=== PATIENT | female | born 1995 | race Caucasian/White ===

== ENCOUNTER → 2019-09-30 | Outpatient (CLI) | payer MEDICAID ==
--- NOTE | 2019-09-30 18:13 | Diagnostic Imaging Report ---
INDICATION: assessment TECHNIQUE: Multiple real-time grayscale images were obtained over the gravid uterus. COMPARISON: None FINDINGS: There is a grossman intrauterine gestation in cephalic presentation. There is normal amount of amniotic fluid. Placenta is posterior without evidence of placenta previa. Cervical length is 3.8 cm. No anomaly is identified. biometry indicates gestational age of 20 weeks and 6 days. No maternal adnexal region abnormality is identified. cardiac activity is present with a rate of 153 bpm. IMPRESSION: Unremarkable obstetrical ultrasound with an estimated gestational age of 20 weeks and 6 days. Sonographic EDC is 02/09/2020 Biometrical measurements are as follows: Biparietal 4.99 cm, age 21 weeks 1 days. Head circumference 18.73 cm, age 21 weeks 1 days. Abdominal circumference 15.74 cm, age 21 weeks 1 days. Femur length 3.56 cm, age 21 weeks 1 days. Sonographic estimate age: 21 weeks 1 days. Sonographic estimated date of delivery: 02/11/2020. Estimated Weight: 396 gm (+/- 2 gm). LMP percentile: 56%. heart rate: 153 beats per minute. number: 1 of 1. Dictated by: Dictated on workstation # [id number]
== END ==
LOC: RAD 15:26
PROVIDERS: ATTEND Obstetrics & Gynecology
DX: Z34.92 Encounter for supervision of normal pregnancy, unspecified, second trimester (principal)
CPT/HCPCS: 76805

== ENCOUNTER 2020-01-30 05:45 | Outpatient (RCR) | payer MEDICAID ==
[~2020-01-30] VITALS: Ht 162 cm; Wt 65.0 kg
[~2020-01-30 05:45] MED LIST: ASCO500C17 PO; FERR-84 PO; PREN-53 PO
[2020-02-04] MEDS ORDERED: OXYC5TAB96 PO (15:49)
[2020-02-04] MEDS ORDERED: DCS100C PO (15:49)
[2020-02-04] MEDS ORDERED: ACET-93 PO (15:49)
[2020-02-04] MEDS ORDERED: IBUP-844 PO (15:49)
[2020-02-04] MEDS ORDERED: SIME80TA16 PO (15:49)
== END 2020-01-30 15:07 | disposition home or self-care (01) ==
LOC: PREOP 05:45
PROVIDERS: ATTEND Obstetrics & Gynecology
DX: Z01.818 Encounter for other preprocedural examination (principal); Z20.828 Contact with and (suspected) exposure to other viral communicable diseases
CPT/HCPCS: 87635